=== PATIENT | female | born 1995 | race Two or more races ===

== ENCOUNTER 2020-09-05 12:38 | Emergency (ER) | payer MEDICAID ==
[~2020-09-05] VITALS: Ht 149.9 cm; Wt 41.8 kg
[2020-09-05 12:46] VITALS: BP 104/62; Ht 149.9 cm; Wt 41.8 kg
[2020-09-05] MEDS ORDERED: PRENAVITE1 TAB (12:47)
[2020-09-05] MEDS ORDERED: PHENERGAN25 M1 PO (12:47)
[2020-09-05 13:04] LABS: BASOPHILS 0.5 % (0-2); EOSINOPHILS 0.4 % (0-7); HEMATOCRIT 37.1 % (36.0-48.0); HEMOGLOBIN 13.2 g/dL (12-16); IMMATURE GRANULOCYTES 0.1 % (0-5); LYMPHOCYTE ABS# 1.35 10x3/uL (1.18-3.74); LYMPHOCYTES 16.1 % (15-50); MCH 31.2 pg (26.0-34.0); MCHC 35.6 g/dL (31.0-37.0); MCV 87.7 fL (80.0-100.0); MEAN PLATELET VOLUME 9.4 fL (7.4-10.4); MONOCYTES 5.5 % (2-11); NEUTROPHIL ABS# 6.49 10x3/uL (1.56-6.13); NEUTROPHILS 77.4 % (40-80); PLATELET COUNT 356 10x3/uL (130-400); RBC 4.23 10x6/uL (4.00-5.40); RDW 11.7 % (11.5-14.5); WBC 8.4 10x3/uL (4.8-10.8)
[2020-09-05 13:19] LABS: CALC OSMOLALITY 267 mosm/kg (275-300); CALCIUM 8.9 mg/dL (8.5-10.1); CARBON DIOXIDE 28.7 mmol/L (21.0-32.0); CHLORIDE - SERUM 99 mmol/L (98-107); CREATININE - SERUM 0.7 mg/dL (0.6-1.3); GLUCOSE 89 mg/dL (74-106); POTASSIUM - SERUM 3.6 mmol/L (3.5-5.1); SODIUM 135 mmol/L (136-145); UREA NITROGEN 11 mg/dL (7-18); eGFR NON AFRICAN AMERICAN > 90 mL/min (90-120)
[2020-09-05 13:25] LABS: ALBUMIN 3.7 g/dL (3.4-5.0); ALKALINE PHOSPHATASE 51 U/L (30-120); ALT (SGPT) 17 U/L (10-68); BILIRUBIN - TOTAL 0.45 mg/dL (0.2-1.3); PROTEIN - SERUM 7.5 g/dL (6.4-8.2)
[2020-09-05 14:22] LABS: BACTERIA FEW HPF (NONE SEEN); BILIRUBIN NEGATIVE (NEGATIVE); KETONE NEGATIVE (NEGATIVE); NITRITE NEGATIVE (NEGATIVE); SQUAMOUS EPITHELIAL 0-5 HPF (0-4); UROBILINOGEN NORMAL mg/dL (< 2); WHITE CELLS - URINE OCC HPF (0-4)
[2020-09-05 14:23] LABS: AMORPHOUS SEDIMENT <1+ LPF (NONE SEEN)
[2020-09-05] MEDS ORDERED: REGLAN5 MG PO (15:19)
== END 2020-09-05 15:53 | disposition home or self-care (01) ==
LOC: D.ER 12:38
PROVIDERS: Emergency Medicine
DX: O21.9 Vomiting of pregnancy, unspecified (principal); Z3A.10 10 weeks gestation of pregnancy